=== PATIENT | female | born 1980 | race Caucasian/White ===

== ENCOUNTER 2021-05-19 12:12 | Emergency (ER) | payer BC ==
[~2021-05-19] VITALS: Ht 160 cm; Wt 65.8 kg
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
--- NOTE | 2021-05-19 14:25 | NUR ---
PATIENT SIGNED WAIVER FORM. CALLED RADIOLOGY FOR XRAY
[2021-05-19] MEDS ORDERED: TDAP [DIPH/PERTUSSIS/TET] 0.5 ML VIAL IM ONE ×2 (15:30→15:37)
[2021-05-19] MEDS ORDERED: KETOROLAC TROMETHAMINE INJ 30 MG/ML VIAL IM ONE (15:30)
[2021-05-19] MEDS ORDERED: IBUP-1955 PO (15:30)
[2021-05-19] MEDS ORDERED: CYCL5TAB PO (15:30)
[2021-05-19] MEDS ORDERED: KETOROLAC TROMETHAMINE 15 MG/ML VIAL ONE (15:37)
--- NOTE | 2021-05-19 15:44 | NUR ---
IV removed. Catheter intact and site benign. Pressure and 4x4 applied to site. No bleeding noted.
--- NOTE | 2021-05-19 15:46 | NUR ---
Patient discharged to home in stable condition. Written and verbal after care instructions given. Patient verbalizes understanding of instruction.
[2021-05-19 15:48] VITALS: BP 124/79
== END 2021-05-19 15:48 | disposition home or self-care (01) ==
LOC: ER 12:17
DX: S46.912A Strain of unspecified muscle, fascia and tendon at shoulder and upper arm level, left arm, initial encounter (principal); M25.532 Pain in left wrist; M25.531 Pain in right wrist; V43.52XA Car driver injured in collision with other type car in traffic accident, initial encounter; Y93.89 Activity, other specified; Y92.410 Unspecified street and highway as the place of occurrence of the external cause; Y99.8 Other external cause status
CPT/HCPCS: 71045; 73030; 73110 ×2; 96372; 99284; J1885; 90715